=== PATIENT | female | born 1965 | race Caucasian/White ===

== ENCOUNTER 2020-05-23 14:30 | Outpatient (CLI) | payer BC ==
--- NOTE | 2020-05-23 20:26 | MRI ---
MRI OF THE LEFT SHOULDER WITHOUT CONTRAST: 05/23/20 INDICATION: History of traumatic tear of the left rotator cuff with pain. COMPARISON: Left shoulder radiograph dated 05/13/20. FINDINGS: Motion artifact heavily limits image detail on exam. FINDINGS: There is a large full thickness tear involving the supraspinatus at the footprint measuring 1.6 x 0.9 cm greatest AP and mediolateral dimensions respectively. There is prominent tendinosis of the supras pinatus and infraspinatus. There is a full thickness disruption of the long head of the biceps tendon with distal retraction. There is a high grade partial thickness articular surface tear involving the subscapularis. The glenohumeral articular surface appears within normal limits. No definite paralabr al cyst is evident. There is some suspected degenerative fraying of the superior and posterior glenoi d labrum. There is severe AC joint osteoarthrosis. No overt muscular atrophy is evident. There is a m oderate sized joint effusion. There is fluid in the subacromial, subdeltoid space. IMPRESSION: 1. Full thickness supraspinatus tear with prominent supraspinatus and infraspinatus tendinosis. 2. Full thickness long head of the biceps tendon tear with distal retraction. 3. High grade partial thickness articular surface tear involving the cranial through caudad exte nt of the subscapularis at footprint. This involve approximately 75% of the tendon thickness. 4. Suspected degenerative type fraying of the superior and posterior glenoid labrum. 5. Severe AC joint osteoarthrosis. POS: BH
== END 2020-05-23 14:31 | disposition home or self-care (01) ==
LOC: BICMRI 14:30
PROVIDERS: ATTEND Orthopaedic Surgery
DX: S46.012A Strain of muscle(s) and tendon(s) of the rotator cuff of left shoulder, initial encounter (principal); M75.122 Complete rotator cuff tear or rupture of left shoulder, not specified as traumatic; M19.012 Primary osteoarthritis, left shoulder